=== PATIENT | male | born 1955 | race Caucasian/White ===

== ENCOUNTER 2018-09-12 15:43 | Inpatient (IN) | payer MEDICARE, OTHER, MEDICAID | END 2018-09-16 16:00 | disposition still patient (30) | LOC: ER 15:43 → PCU 3S 09-13 07:30 → ED HOLD 22:47 | DX: I21.4 Non-ST elevation (NSTEMI) myocardial infarction (principal); N17.9 Acute kidney failure, unspecified; J44.1 Chronic obstructive pulmonary disease with (acute) exacerbation; I48.91 Unspecified atrial fibrillation; N18.3 Chronic kidney disease, stage 3 (moderate) ==

== ENCOUNTER 2019-04-08 12:45 | Inpatient (IN) | payer MEDICARE, OTHER ==
[~2019-04-08] VITALS: Ht 162.6 cm; Wt 118.2 kg
[~2019-04-08 12:45] MED LIST: APIX5TAB3 PO; ASPI-611 PO; ATOR20TA66 PO; CARCD120C PO; CARV25TA2 PO; CHOL100046 PO; CLOP75TA15 PO; FURO40TA4 PO; HYDR500C18 PO; LOSA50TA3 PO; PANT40TA4 PO; POTA20TA19 PO; TRAM50TA2 PO
[2019-04-08] MEDS ORDERED: diltiazem 5mg/ml 5ml inj. IV ONE ×2 (13:35→14:30)
[2019-04-08 13:42] LABS: BASOPHILS % (AUTO) 0.1 % (0-1); EOSINOPHILS # (AUTO) 0.1 X10'3 (0-0.9); EOSINOPHILS % (AUTO) 1.8 % (0-6); HEMATOCRIT 42.3 % (42.0-52.0); HEMOGLOBIN 14.3 g/dl (14.0-17.9); LYMPHOCYTES # (AUTO) 1.5 X10'3 (1.1-4.8); LYMPHOCYTES % (AUTO) 18.4 % (21-51); MEAN CORPUSCULAR HEMOGLOBIN 35.6 PG (27.0-31.0); MEAN CORPUSCULAR HGB CONC 33.8 g/dL (33.0-36.5); MEAN CORPUSCULAR VOLUME 105.5 FL (78-98); MEAN PLATELET VOLUME 8.2 FL (7.4-10.4); MONOCYTES # (AUTO) 0.9 X10'3 (0-0.9); MONOCYTES % (AUTO) 10.8 % (2-12); NEUTROPHILS # (AUTO) 5.5 X10'3 (1.8-7.7); NEUTROPHILS % (AUTO) 68.9 % (42-75); PLATELET COUNT 297 X10'3 (140-440); RED BLOOD COUNT 4.01 X10'6 (4.70-6.10); RED CELL DISTRIBUTION WIDTH 16.3 % (11.5-14.5)
[2019-04-08 14:08] LABS: ALANINE AMINOTRANSFERASE 35 U/L (12-78); ALBUMIN 3.7 G/DL (3.4-5.0); ALBUMIN/GLOBULIN RATIO 1.2 (1.1-1.5); ALKALINE PHOSPHATASE 78 IU/L (46-116); ANION GAP 11 (8-16); ASPARTATE AMINO TRANSFERASE 18 U/L (10-37); BLOOD UREA NITROGEN 38 MG/DL (7-18); CALCIUM 9.3 MG/DL (8.5-10.1); CHLORIDE 110 MMOL/L (99-107); GLUCOSE 129 MG/DL (70-104); POTASSIUM 4.5 MMOL/L (3.5-5.1); SODIUM 147 MMOL/L (135-145); TOTAL CARBON DIOXIDE 25.6 MMOL/L (24-32); TOTAL PROTEIN 6.9 G/DL (6.4-8.2); eGFR 36 ML/MIN
[2019-04-08 14:26] LABS: BILIRUBIN,TOTAL 1.1 MG/DL (0.1-1.0)
[2019-04-08 14:36] LABS: D-DIMER 0.32 MG/L FEU (0-0.50); PARTIAL THROMBOPLASTIN TIME 28 SECONDS (22-32)
[2019-04-08] MEDS ORDERED: diltiazem-NS 100mg/100ml 100 ML IV SCH (14:50)
[2019-04-08] MEDS ORDERED: aspirin 81mg tab.chew PO ONE (14:50)
--- NOTE | 2019-04-08 14:52 | NUR ---
breaking primary RN, gave cardizenm over 2 mins, tolerated well, pt sitting up in bed talking to daughter on the phone
[2019-04-08] MEDS ORDERED: LORazepam 2 mg/ml vial IV ONE (15:05)
[2019-04-08] MEDS ORDERED: HYDROcodone/acetaminophen 5mg/325mg tablet PO PRN (15:20)
[2019-04-08] MEDS ORDERED: ondansetron/PF 4mg/2ml inj IV PRN (15:20)
[2019-04-08] MEDS ORDERED: acetaminophen 325mg tablet PO PRN (15:20)
[2019-04-08] MEDS ORDERED: mag hydrox/Alum hydrox/simeth 30ml oral suspension PO PRN (15:20)
[2019-04-08] MEDS ORDERED: magnesium hydroxide 30ml (MOM) UD suspension PO PRN (15:20)
[2019-04-08] MEDS ORDERED: morphine 2 MG/ML inj. syringe IV PRN (15:20)
[2019-04-08] MEDS ORDERED: APIX5TAB3 PO (15:44)
[2019-04-08 15:46] LABS: HEMOGLOBIN A1C 6.2 % (4.5-6.2)
--- NOTE | 2019-04-08 16:15 | NUR ---
Patient in room ED 15. I have received report from GODFREY Orellana and had the opportunity to ask questions and assume patient care.
--- NOTE | 2019-04-08 16:32 | NUR ---
Received patient in 2018A from ER. Attached to bedside monitor. US tech in to do Echo. Patient has increased SOB with exertion, even moving on to the bed. Audible wheezing heard.
[2019-04-08 16:33] VITALS: BP 109/87
[2019-04-08] MEDS ORDERED: traMADol 50MG tablet PO PRN (17:20)
[2019-04-08] MEDS ORDERED: carVEDilol 12.5mg tablet PO STA (17:31)
--- NOTE | 2019-04-08 18:01 | NUR ---
Paged Dr. Chavez to clarify if Amiodarone is to be stopped. Told me verbally, but said he would put in the order and has not yet.
--- NOTE | 2019-04-08 18:19 | NUR ---
Problems reprioritized. Patient report given, questions answered & plan of care reviewed with GODFREY Bird.
--- NOTE | 2019-04-08 18:39 | NUR ---
Problems reprioritized. Patient report given, questions answered & plan of care reviewed with GODFREY Osman.
[2019-04-08 19:00] VITALS: BP 94/65
--- NOTE | 2019-04-08 19:16 | NUR ---
Called Dr. Skaggs, patient's heart rate dropped in low 30's. Got the order to Discontinue the cardizam drip. No other orders were given.
[2019-04-08] MEDS: apixaban 5mg tablet PO SCH (19:46)
[2019-04-08] MEDS: carVEDilol 12.5mg tablet PO SCH (19:46)
[2019-04-08] MEDS ORDERED: non-formulary drug (Carvedilol 1 TABLET) PO SCH (20:00)
[2019-04-08 22:00] VITALS: BP 118/79
--- NOTE | 2019-04-08 23:06 | NUR ---
Called Dr. Skaggs regarding the patient's heart rate being in 110's to 130's. Got the order for cardizam 2.5 ml/hr. No other orders were given at this time.
[2019-04-08] MEDS: diltiazem-NS 100mg/100ml 100 ML IV SCH (23:20)
[2019-04-09] VITALS (14 sets, daily range): BP systolic 108–139; BP diastolic 70–105
[2019-04-09 01:40] LABS: BASOPHILS # (AUTO) 0.1 X10'3 (0-0.2); BASOPHILS % (AUTO) 1.3 % (0-1); EOSINOPHILS # (AUTO) 0.2 X10'3 (0-0.9); EOSINOPHILS % (AUTO) 2.5 % (0-6); HEMATOCRIT 41.6 % (42.0-52.0); HEMOGLOBIN 14.2 g/dl (14.0-17.9); LYMPHOCYTES # (AUTO) 1.7 X10'3 (1.1-4.8); LYMPHOCYTES % (AUTO) 21.9 % (21-51); MEAN CORPUSCULAR HEMOGLOBIN 35.6 PG (27.0-31.0); MEAN CORPUSCULAR VOLUME 104.6 FL (78-98); MEAN PLATELET VOLUME 8.3 FL (7.4-10.4); MONOCYTES % (AUTO) 12.3 % (2-12); NEUTROPHILS # (AUTO) 4.8 X10'3 (1.8-7.7); PLATELET COUNT 296 X10'3 (140-440); RED BLOOD COUNT 3.98 X10'6 (4.70-6.10); RED CELL DISTRIBUTION WIDTH 15.9 % (11.5-14.5); WHITE BLOOD COUNT 7.8 X10'3 (4.5-11.0)
[2019-04-09 01:59] LABS: ALBUMIN 3.4 G/DL (3.4-5.0); ANION GAP 10 (8-16); BLOOD UREA NITROGEN 36 MG/DL (7-18); BUN/CREATININE RATIO 18.8 (5.4-32.0); CALCIUM 8.9 MG/DL (8.5-10.1); CHLORIDE 112 MMOL/L (99-107); CHOL/HDL RATIO 3.2 (0.00-4.99); CHOLESTEROL 113 MG/DL (0-200); CREATININE 1.92 MG/DL (0.60-1.10); GLUCOSE 131 MG/DL (70-104); HDL CHOLESTEROL 35 MG/DL (35-60); LDL CHOLESTEROL 74 MG/DL (50-100); POTASSIUM 3.7 MMOL/L (3.5-5.1); SODIUM 148 MMOL/L (135-145); TOTAL CARBON DIOXIDE 25.8 MMOL/L (24-32); TRIGLYCERIDES 110 MG/DL (20-135); eGFR 35 ML/MIN
[2019-04-09] MEDS: HYDROcodone/acetaminophen 10/325mg tab PO PRN ×3 (02:24→19:14)
--- NOTE | 2019-04-09 06:10 | NUR ---
Patient in room PCU 3018. I have received report from Asael DONAHUE and had the opportunity to ask questions and assume patient care.
--- NOTE | 2019-04-09 06:34 | NUR ---
Gave report to Frederick-GODFREY. All questions were answered
--- NOTE | 2019-04-09 06:52 | NUR ---
Patient in room PCU 3021. I have received report from Jacqui and had the opportunity to ask questions and assume patient care.
[2019-04-09] MEDS: atorvastatin 20mg tablet PO SCH (07:34)
[2019-04-09] MEDS: clopidogrel 75mg tablet PO SCH (07:34)
[2019-04-09] MEDS: apixaban 5mg tablet PO SCH ×2 (07:34→19:13)
[2019-04-09] MEDS: potassium Cl 20 mEq SR tablet PO SCH (07:34)
[2019-04-09] MEDS: losartan 50mg tablet PO SCH (07:35)
[2019-04-09] MEDS: vitamin D (cholecalciferol) 1,000 unit tablet PO SCH (07:35)
[2019-04-09] MEDS: carVEDilol 12.5mg tablet PO SCH ×2 (07:35→19:13)
--- NOTE | 2019-04-09 18:10 | NUR ---
Problems reprioritized. Patient report given, questions answered & plan of care reviewed with Yvette DONAHUE.
--- NOTE | 2019-04-09 18:37 | NUR ---
I have reviewed Ayse DONAHUE, orientee, charting and I agree with it
[2019-04-09] MEDS: diltiazem 30mg tablet PO SCH (19:13)
[2019-04-10] VITALS (10 sets, daily range): BP systolic 94–125; BP diastolic 80–99
[2019-04-10] MEDS: HYDROcodone/acetaminophen 10/325mg tab PO PRN ×3 (01:39→21:30)
[2019-04-10] MEDS: diltiazem 30mg tablet PO SCH ×4 (01:39→21:25)
--- NOTE | 2019-04-10 02:43 | NUR ---
Called Dr. Skaggs due to patient's HR dropping into the 30s-40s while on Cardizem drip and having received 60mg PO dose of Cardizem. Current BP 118/87 and patient appears to be sleeping with no s/s of distress. HR when woken up rises to the 110s-120s. MD gave order to place drip on hold for HR less than 60 and to have AM nurse call day MD prior to giving next PO dose
[2019-04-10 05:46] LABS: BASOPHILS # (AUTO) 0.1 X10'3 (0-0.2); BASOPHILS % (AUTO) 1.3 % (0-1); EOSINOPHILS # (AUTO) 0.2 X10'3 (0-0.9); EOSINOPHILS % (AUTO) 2.9 % (0-6); HEMOGLOBIN 14.6 g/dl (14.0-17.9); LYMPHOCYTES # (AUTO) 1.5 X10'3 (1.1-4.8); LYMPHOCYTES % (AUTO) 20.2 % (21-51); MEAN CORPUSCULAR HEMOGLOBIN 35.7 PG (27.0-31.0); MEAN CORPUSCULAR HGB CONC 33.3 g/dL (33.0-36.5); MEAN PLATELET VOLUME 8.1 FL (7.4-10.4); MONOCYTES # (AUTO) 0.9 X10'3 (0-0.9); MONOCYTES % (AUTO) 12.9 % (2-12); NEUTROPHILS # (AUTO) 4.6 X10'3 (1.8-7.7); NEUTROPHILS % (AUTO) 62.7 % (42-75); PLATELET COUNT 289 X10'3 (140-440); RED BLOOD COUNT 4.11 X10'6 (4.70-6.10); RED CELL DISTRIBUTION WIDTH 16.1 % (11.5-14.5); WHITE BLOOD COUNT 7.4 X10'3 (4.5-11.0)
[2019-04-10 06:00] LABS: ALBUMIN 3.5 G/DL (3.4-5.0); ANION GAP 9 (8-16); BLOOD UREA NITROGEN 36 MG/DL (7-18); BUN/CREATININE RATIO 21.1 (5.4-32.0); CALCIUM 9.5 MG/DL (8.5-10.1); CHLORIDE 107 MMOL/L (99-107); CREATININE 1.71 MG/DL (0.60-1.10); GLUCOSE 123 MG/DL (70-104); POTASSIUM 3.7 MMOL/L (3.5-5.1); SODIUM 142 MMOL/L (135-145); TOTAL CARBON DIOXIDE 26.2 MMOL/L (24-32); eGFR 40 ML/MIN
--- NOTE | 2019-04-10 06:11 | NUR ---
Problems reprioritized. Patient report given, questions answered & plan of care reviewed with Mireya DONAHUE.
--- NOTE | 2019-04-10 07:43 | NUR ---
Per Dr Skaggs's order, notified AM MD of pt's current HR for possible adjustment of AM dose Cardizem. PAGER ID: [phone] MESSAGE: [phone] Liz Wilkinson HR 90-110s, off Cardizem drip since 239 due to low HR. Notifying you per order, do you want to adjust AM dose 60mg PO Cardizem? Chrissy Gomes [id number] Addendum: 04/10/19 at 0747 by Marilou Dodd RN Received return call and order to change cardizem order to 90mg PO Q6H Addendum: 04/10/19 at 1030 by Mireya Vergara RN [id number] - PO Cardizem dose changed from 60 to 90mg and order to keep pt of Cardizem gtt at this time.
[2019-04-10] MEDS: clopidogrel 75mg tablet PO SCH (08:41)
[2019-04-10] MEDS: carVEDilol 12.5mg tablet PO SCH (08:41)
[2019-04-10] MEDS: atorvastatin 20mg tablet PO SCH (08:41)
[2019-04-10] MEDS: potassium Cl 20 mEq SR tablet PO SCH (08:41)
[2019-04-10] MEDS: losartan 50mg tablet PO SCH (08:41)
[2019-04-10] MEDS: vitamin D (cholecalciferol) 1,000 unit tablet PO SCH (08:41)
[2019-04-10] MEDS: apixaban 5mg tablet PO SCH ×2 (08:42→21:25)
[2019-04-10] MEDS: diltiazem-NS 100mg/100ml 100 ML IV SCH (15:15)
[2019-04-10] MEDS: carvedilol 6.25mg tablet PO SCH (21:25)
[2019-04-10] MEDS: sacubitril/valsartan 24mg-26mg tablet PO SCH (21:25)
[2019-04-11] VITALS (7 sets, daily range): BP systolic 114–138; BP diastolic 56–97
[2019-04-11] MEDS: diltiazem 30mg tablet PO SCH ×3 (01:18→14:32)
[2019-04-11] MEDS: HYDROcodone/acetaminophen 10/325mg tab PO PRN ×5 (01:18→19:33)
--- NOTE | 2019-04-11 04:15 | NUR ---
Called Dr. Skaggs due to patient's HR dropping into the 20s and continuing to drop into the 30s for approximately 1 minute at a time. When patient was examined he was sleeping with no s/s of distress noted. Patient's HR continues to rise back into the 110s without any intervention. MD stated to continue to monitor.
[2019-04-11 05:45] LABS: BASOPHILS # (AUTO) 0.1 X10'3 (0-0.2); BASOPHILS % (AUTO) 1.8 % (0-1); EOSINOPHILS # (AUTO) 0.2 X10'3 (0-0.9); EOSINOPHILS % (AUTO) 3.5 % (0-6); HEMATOCRIT 42.9 % (42.0-52.0); HEMOGLOBIN 14.5 g/dl (14.0-17.9); LYMPHOCYTES # (AUTO) 1.7 X10'3 (1.1-4.8); LYMPHOCYTES % (AUTO) 24.4 % (21-51); MEAN CORPUSCULAR HEMOGLOBIN 35.6 PG (27.0-31.0); MEAN CORPUSCULAR HGB CONC 33.9 g/dL (33.0-36.5); MEAN CORPUSCULAR VOLUME 104.8 FL (78-98); MEAN PLATELET VOLUME 8.3 FL (7.4-10.4); MONOCYTES # (AUTO) 0.8 X10'3 (0-0.9); MONOCYTES % (AUTO) 11.9 % (2-12); NEUTROPHILS # (AUTO) 4.1 X10'3 (1.8-7.7); NEUTROPHILS % (AUTO) 58.4 % (42-75); PLATELET COUNT 307 X10'3 (140-440); RED BLOOD COUNT 4.09 X10'6 (4.70-6.10)
[2019-04-11 05:47] LABS: ALBUMIN 3.4 G/DL (3.4-5.0); ANION GAP 10 (8-16); BLOOD UREA NITROGEN 32 MG/DL (7-18); BUN/CREATININE RATIO 19.4 (5.4-32.0); CALCIUM 8.2 MG/DL (8.5-10.1); CHLORIDE 108 MMOL/L (99-107); CREATININE 1.65 MG/DL (0.60-1.10); GLUCOSE 106 MG/DL (70-104); POTASSIUM 3.6 MMOL/L (3.5-5.1); SODIUM 144 MMOL/L (135-145); TOTAL CARBON DIOXIDE 26.5 MMOL/L (24-32); eGFR 42 ML/MIN
--- NOTE | 2019-04-11 06:00 | NUR ---
Patient in room PCU 3018. I have received report from Yvette DONAHUE and had the opportunity to ask questions and assume patient care.
--- NOTE | 2019-04-11 06:17 | NUR ---
Problems reprioritized. Patient report given, questions answered & plan of care reviewed with Frederick DONAHUE.
[2019-04-11] MEDS: sacubitril/valsartan 24mg-26mg tablet PO SCH ×2 (07:29→19:56)
[2019-04-11] MEDS: carvedilol 6.25mg tablet PO SCH ×2 (07:29→19:33)
[2019-04-11] MEDS: apixaban 5mg tablet PO SCH ×2 (07:29→19:33)
[2019-04-11] MEDS: vitamin D (cholecalciferol) 1,000 unit tablet PO SCH (07:29)
[2019-04-11] MEDS: potassium Cl 20 mEq SR tablet PO SCH (07:29)
[2019-04-11] MEDS: clopidogrel 75mg tablet PO SCH (07:30)
[2019-04-11] MEDS: atorvastatin 20mg tablet PO SCH (07:30)
[2019-04-11] MEDS: losartan 50mg tablet PO SCH (07:30)
--- NOTE | 2019-04-11 08:15 | NUR ---
Pt had a 5.75 second cardiac pause at 0810. Dr. Ferrara notified, no new orders.
[2019-04-11 11:21] LABS: URINE AMPHETAMINE SCREEN NEGATIVE (Neg); URINE BARBITUATE SCREEN NEGATIVE (Neg); URINE BENZODIAZEPINES SCREEN NEGATIVE (Neg); URINE CANNABINOID SCREEN NEGATIVE (Neg); URINE COCAINE SCREEN NEGATIVE (Neg); URINE METHADONE SCREEN NEGATIVE (Neg); URINE OPIATE SCREEN POSITIVE (Neg); URINE PHENCYCLIDINE SCREEN NEGATIVE (Neg)
--- NOTE | 2019-04-11 18:00 | NUR ---
Patient in room [facility] 3018. I have received report from Yvette DONAHUE and Elisabet DONAHUE and had the opportunity to ask questions and assume patient care. Addendum: 04/11/19 at 1836 by Frederick Quezada RN Problems reprioritized. Patient report given, questions answered & plan of care reviewed with Yvette DONAHUE and Elisabet DONAHUE.
--- NOTE | 2019-04-11 18:46 | NUR ---
Patient in room PCU 3018. I have received report from GODFREY Mack and had the opportunity to ask questions and assume patient care.
[2019-04-11] MEDS: amiodarone 200mg tablet PO SCH (19:33)
[2019-04-12] MEDS: HYDROcodone/acetaminophen 10/325mg tab PO PRN ×6 (00:28→23:42)
[2019-04-12 02:00] VITALS: BP 103/86
[2019-04-12 05:38] LABS: BASOPHILS # (AUTO) 0.1 X10'3 (0-0.2); BASOPHILS % (AUTO) 1.2 % (0-1); EOSINOPHILS # (AUTO) 0.2 X10'3 (0-0.9); EOSINOPHILS % (AUTO) 3.3 % (0-6); HEMOGLOBIN 14.9 g/dl (14.0-17.9); LYMPHOCYTES # (AUTO) 1.6 X10'3 (1.1-4.8); LYMPHOCYTES % (AUTO) 23.3 % (21-51); MEAN CORPUSCULAR HEMOGLOBIN 35.7 PG (27.0-31.0); MEAN CORPUSCULAR HGB CONC 33.8 g/dL (33.0-36.5); MEAN CORPUSCULAR VOLUME 105.6 FL (78-98); MEAN PLATELET VOLUME 7.9 FL (7.4-10.4); MONOCYTES % (AUTO) 13.8 % (2-12); NEUTROPHILS % (AUTO) 58.4 % (42-75); PLATELET COUNT 309 X10'3 (140-440); RED BLOOD COUNT 4.17 X10'6 (4.70-6.10); RED CELL DISTRIBUTION WIDTH 16.4 % (11.5-14.5); WHITE BLOOD COUNT 6.9 X10'3 (4.5-11.0)
--- NOTE | 2019-04-12 05:50 | NUR ---
Orientee documentation: I have reviewed all interventions, assessments performed and documented by Elisabet DONAHUE. Orientee Medication Administration: For this medication-pass time frame, all medication were reviewed, dispensed, administered and documented per hospital policy by Elisabet DONAHUE.
[2019-04-12 06:00] VITALS: BP 134/90
[2019-04-12 06:00] LABS: ALBUMIN 3.2 G/DL (3.4-5.0); ANION GAP 6 (8-16); BLOOD UREA NITROGEN 25 MG/DL (7-18); CALCIUM 8.2 MG/DL (8.5-10.1); CHLORIDE 108 MMOL/L (99-107); CREATININE 1.39 MG/DL (0.60-1.10); GLUCOSE 119 MG/DL (70-104); POTASSIUM 3.6 MMOL/L (3.5-5.1); SODIUM 144 MMOL/L (135-145); TOTAL CARBON DIOXIDE 29.6 MMOL/L (24-32); eGFR 51 ML/MIN
--- NOTE | 2019-04-12 06:00 | NUR ---
Patient in room PCU 3018. I have received report from Yvette DONAHUE and had the opportunity to ask questions and assume patient care.
--- NOTE | 2019-04-12 06:07 | NUR ---
Problems reprioritized. Patient report given, questions answered & plan of care reviewed with Frederick DONAHUE.
--- NOTE | 2019-04-12 06:23 | NUR ---
Problems reprioritized. Patient report given, questions answered & plan of care reviewed with GODFREY Mack.
[2019-04-12] MEDS: carvedilol 6.25mg tablet PO SCH (07:22)
[2019-04-12] MEDS: sacubitril/valsartan 24mg-26mg tablet PO SCH ×2 (07:22→19:11)
[2019-04-12] MEDS: clopidogrel 75mg tablet PO SCH (07:22)
[2019-04-12] MEDS: vitamin D (cholecalciferol) 1,000 unit tablet PO SCH (07:22)
[2019-04-12] MEDS: atorvastatin 20mg tablet PO SCH (07:22)
[2019-04-12] MEDS: potassium Cl 20 mEq SR tablet PO SCH (07:22)
[2019-04-12] MEDS: amiodarone 200mg tablet PO SCH ×2 (07:23→19:22)
[2019-04-12] MEDS: apixaban 5mg tablet PO SCH ×2 (07:23→19:12)
[2019-04-12] MEDS ORDERED: carvedilol 6.25mg tablet PO ONE (09:30)
[2019-04-12 11:00] VITALS: BP 97/71
[2019-04-12] MEDS ORDERED: amiodarone 200mg tablet PO ONE (11:10)
[2019-04-12] MEDS ORDERED: ipratropium/albuterol 3ml nebule NEB PRN (15:05)
[2019-04-12 18:00] VITALS: BP 120/90
--- NOTE | 2019-04-12 18:00 | NUR ---
Problems reprioritized. Patient report given, questions answered & plan of care reviewed with Carlota DONAHUE and Elisabet DONAHUE.
[2019-04-12 19:00] VITALS: BP 101/83
[2019-04-12] MEDS: carVEDilol 12.5mg tablet PO SCH (19:11)
[2019-04-12] MEDS: ipratropium/albuterol 3ml nebule NEB SCH ×2 (19:43→23:18)
[2019-04-12] MEDS: budesonide 0.5mg/2ml UD nebule IH SCH (19:43)
[2019-04-12] MEDS ORDERED: furosemide 40mg/4ml inj IV SCH (20:00)
[2019-04-12 22:00] VITALS: BP 136/86
[2019-04-12] MEDS: spironolactone 25 MG tablet PO SCH (22:01)
[2019-04-13 02:00] VITALS: BP 121/93
--- NOTE | 2019-04-13 02:01 | NUR ---
Patient in room PCU 3018. I have received report from GODFREY Mack and had the opportunity to ask questions and assume patient care. Patient denies feeling chest pain, shortness of pain, and nausea.
[2019-04-13] MEDS: ipratropium/albuterol 3ml nebule NEB SCH ×4 (03:04→13:46)
[2019-04-13] MEDS: HYDROcodone/acetaminophen 10/325mg tab PO PRN ×3 (03:57→14:59)
[2019-04-13 06:00] VITALS: BP 106/87
--- NOTE | 2019-04-13 06:40 | NUR ---
Problems reprioritized. Patient report given, questions answered & plan of care reviewed with Sanjay DONAHUE.
[2019-04-13] MEDS: budesonide 0.5mg/2ml UD nebule IH SCH (06:53)
[2019-04-13 07:16] LABS: BASOPHILS # (AUTO) 0.1 X10'3 (0-0.2); BASOPHILS % (AUTO) 1.7 % (0-1); EOSINOPHILS # (AUTO) 0.2 X10'3 (0-0.9); EOSINOPHILS % (AUTO) 2.8 % (0-6); HEMATOCRIT 46.4 % (42.0-52.0); HEMOGLOBIN 15.8 g/dl (14.0-17.9); LYMPHOCYTES # (AUTO) 1.8 X10'3 (1.1-4.8); LYMPHOCYTES % (AUTO) 24.2 % (21-51); MEAN CORPUSCULAR HEMOGLOBIN 35.9 PG (27.0-31.0); MEAN CORPUSCULAR VOLUME 105.5 FL (78-98); MONOCYTES % (AUTO) 13.1 % (2-12); NEUTROPHILS # (AUTO) 4.4 X10'3 (1.8-7.7); NEUTROPHILS % (AUTO) 58.2 % (42-75); PLATELET COUNT 341 X10'3 (140-440); RED CELL DISTRIBUTION WIDTH 16.2 % (11.5-14.5); WHITE BLOOD COUNT 7.6 X10'3 (4.5-11.0)
[2019-04-13] MEDS: sacubitril/valsartan 24mg-26mg tablet PO SCH (07:34)
[2019-04-13] MEDS: clopidogrel 75mg tablet PO SCH (07:35)
[2019-04-13] MEDS: atorvastatin 20mg tablet PO SCH (07:35)
[2019-04-13] MEDS: potassium Cl 20 mEq SR tablet PO SCH (07:35)
[2019-04-13] MEDS: apixaban 5mg tablet PO SCH (07:35)
[2019-04-13] MEDS: vitamin D (cholecalciferol) 1,000 unit tablet PO SCH (07:35)
[2019-04-13] MEDS: carVEDilol 12.5mg tablet PO SCH (07:35)
[2019-04-13] MEDS: amiodarone 200mg tablet PO SCH (07:35)
[2019-04-13] MEDS: spironolactone 25 MG tablet PO SCH (07:35)
[2019-04-13] MEDS ORDERED: furosemide 40mg tablet PO SCH (08:00)
[2019-04-13 08:52] LABS: ALBUMIN 3.4 G/DL (3.4-5.0); ANION GAP 11 (8-16); BLOOD UREA NITROGEN 23 MG/DL (7-18); BUN/CREATININE RATIO 16.1 (5.4-32.0); CHLORIDE 107 MMOL/L (99-107); CREATININE 1.43 MG/DL (0.60-1.10); GLUCOSE 109 MG/DL (70-104); POTASSIUM 3.8 MMOL/L (3.5-5.1); SODIUM 145 MMOL/L (135-145); TOTAL CARBON DIOXIDE 26.6 MMOL/L (24-32); eGFR 50 ML/MIN
[2019-04-13] MEDS ORDERED: ATOR80TA PO (10:00)
[2019-04-13] MEDS ORDERED: SACU1TAB PO (10:00)
[2019-04-13] MEDS ORDERED: SPIR25TA PO (10:00)
[2019-04-13] MEDS ORDERED: CARV-50 PO (10:00)
[2019-04-13] MEDS ORDERED: AMIO200T61 PO ×2 (10:00→10:44)
[2019-04-13 11:00] VITALS: BP 95/71
--- NOTE | 2019-04-13 11:13 | NUR ---
[facility], patient told to call when [facility] are [facility]
--- NOTE | 2019-04-13 11:43 | NUR ---
AGER ID: [phone] MESSAGE: [id number] Villa Wilkinson I was needing some clarification on the Amiodarone for discharge. GODFREY Grace Ext [phone]
--- NOTE | 2019-04-13 11:53 | NUR ---
Meds called into [facility] [address] [place].
[2019-04-13 15:00] VITALS: BP 115/84
--- NOTE | 2019-04-13 17:34 | NUR ---
Discharged tele and IV off. Educated on meds, aifb, chf, told make appointment in a week (I was unable to [facility]oin[facility] with [facility], no phone option directed me to it). Educated the family on everything I educated patient on. Educated on family on [employer] vest. Stable for MD per DC.
== END 2019-04-13 16:30 | disposition home or self-care (01) | DRG 291 ==
LOC: ER 12:46 → ED HOLD 15:24 → PCU 3S 16:53
PROVIDERS: ADMIT Internal Medicine; ATTEND Family Medicine
DX: I13.0 Hypertensive heart and chronic kidney disease with heart failure and stage 1 through stage 4 chronic kidney disease, or unspecified chronic kidney disease (principal); I50.43 Acute on chronic combined systolic (congestive) and diastolic (congestive) heart failure; J96.02 Acute respiratory failure with hypercapnia; Z68.41 Body mass index [BMI] 40.0-44.9, adult; N17.9 Acute kidney failure, unspecified; E87.0 Hyperosmolality and hypernatremia; I42.9 Cardiomyopathy, unspecified; I48.0 Paroxysmal atrial fibrillation; E66.01 Morbid (severe) obesity due to excess calories; J44.9 Chronic obstructive pulmonary disease, unspecified; D69.6 Thrombocytopenia, unspecified; R00.0 Tachycardia, unspecified; N18.3 Chronic kidney disease, stage 3 (moderate); I25.10 Atherosclerotic heart disease of native coronary artery without angina pectoris; E78.00 Pure hypercholesterolemia, unspecified; E78.5 Hyperlipidemia, unspecified; G47.33 Obstructive sleep apnea (adult) (pediatric); I50.82 Biventricular heart failure; I25.2 Old myocardial infarction; Z79.899 Other long term (current) drug therapy; Z87.891 Personal history of nicotine dependence; Z95.5 Presence of coronary angioplasty implant and graft
CPT/HCPCS: 36415; 71045; 80048; 80053; 80061; 80305; 83036; 83880; 84439; 84443; 84484; 85025; 85379; 85610; 85730; 87081; 93005; 93306; 94640; 94760; 96365; 96375; 96376; 99291; G0378; J1940; J2060; J3490; J7626

== ENCOUNTER 2019-09-03 11:31 | Emergency (ER) | payer MEDICAID, MEDICARE, OTHER ==
[~2019-09-03] VITALS: Ht 162.6 cm; Wt 115.9 kg
[~2019-09-03 11:31] MED LIST changes: -ASPI-611 PO; -ATOR20TA66 PO; -CARCD120C PO; +CARV-50 PO; -CARV25TA2 PO; -LOSA50TA3 PO; -PANT40TA4 PO; +SACU1TAB PO; +SPIR25TA PO
[2019-09-03] MEDS ORDERED: normal saline 1000ML IV soln IVB ONE ×2 (12:15→13:20)
--- NOTE | 2019-09-03 12:16 | NUR ---
RECEIVED REPORT FROM ZURI DONAHUE, PT IS RESTING QUIETLY ON GURSALIX IN [facility],
[2019-09-03 12:49] LABS: BASOPHILS # (AUTO) 0.2 X10'3 (0-0.2); EOSINOPHILS # (AUTO) 0.2 X10'3 (0-0.9); HEMATOCRIT 51.7 % (42.0-52.0); HEMOGLOBIN 17.9 g/dl (14.0-17.9); LYMPHOCYTES # (AUTO) 1.8 X10'3 (1.1-4.8); LYMPHOCYTES % (AUTO) 22.3 % (21-51); MEAN CORPUSCULAR HGB CONC 34.7 g/dL (33.0-36.5); MEAN CORPUSCULAR VOLUME 103.7 FL (78-98); MEAN PLATELET VOLUME 7.4 FL (7.4-10.4); MONOCYTES % (AUTO) 12.1 % (2-12); NEUTROPHILS # (AUTO) 4.9 X10'3 (1.8-7.7); NEUTROPHILS % (AUTO) 60.6 % (42-75); PLATELET COUNT 321 X10'3 (140-440); RED BLOOD COUNT 4.99 X10'6 (4.70-6.10); RED CELL DISTRIBUTION WIDTH 15.6 % (11.5-14.5); WHITE BLOOD COUNT 8.1 X10'3 (4.5-11.0)
--- NOTE | 2019-09-03 12:49 | NUR ---
PT RECEIVING 500ML BOLUS OF NS, IV TO LEFT AC IS PATENT AND CLEAR
[2019-09-03 13:14] LABS: ALANINE AMINOTRANSFERASE 29 U/L (12-78); ALBUMIN 4.2 G/DL (3.4-5.0); ALBUMIN/GLOBULIN RATIO 1.1 (1.1-1.5); ALKALINE PHOSPHATASE 78 IU/L (46-116); ANION GAP 12 (8-16); ASPARTATE AMINO TRANSFERASE 21 U/L (10-37); BILIRUBIN,TOTAL 1.2 MG/DL (0.1-1.0); BLOOD UREA NITROGEN 42 MG/DL (7-18); BUN/CREATININE RATIO 19.7 (5.4-32.0); CALCIUM 9.9 MG/DL (8.5-10.1); CHLORIDE 104 MMOL/L (99-107); CREATININE 2.13 MG/DL (0.60-1.10); GLUCOSE 134 MG/DL (70-104); POTASSIUM 5.3 MMOL/L (3.5-5.1); SODIUM 138 MMOL/L (135-145); TOTAL CARBON DIOXIDE 21.9 MMOL/L (24-32); TOTAL PROTEIN 7.9 G/DL (6.4-8.2); eGFR 31 ML/MIN
[2019-09-03 13:41] LABS: CLARITY,URINE CLEAR (Clear); COLOR,URINE STRAW (Yellow); GLUCOSE, URINE NEGATIVE (Neg); KETONES,URINE NEGATIVE (Neg); LEUKOCYTE ESTERASE ,URINE NEGATIVE (Neg); NITRITES, URINE NEGATIVE (Neg); OCCULT BLOOD,URINE NEGATIVE (Neg); PH,URINE 5.5 (4.8-8.0); PROTEIN,URINE TRACE mg/dl (Neg); UROBILINOGEN,URINE 0.2 E.U/dL (0.2-1.0)
[2019-09-03 13:42] LABS: UA COLLECTION TYPE CLN CATCH MIDSTREAM
--- NOTE | 2019-09-03 13:45 | NUR ---
pt is receiving 2nd 500ml NS bolus
[2019-09-03 13:46] LABS: HYALINE CASTS 0-3 /LPF (NEGATIVE); SQUAMOUS EPITHELIAL CELL,UR FEW /LPF (FEW)
[2019-09-03 13:47] LABS: BACTERIA,URINE FEW /HPF (Neg); RBC,URINE 0-2 /HPF (0-2); TRANSITIONAL EPI CELLS,URINE FEW /HPF; WBC,URINE 0-4 /HPF (0-4)
[2019-09-03 14:22] VITALS: BP 137/98
== END 2019-09-03 14:24 | disposition home or self-care (01) ==
LOC: ER 11:31
DX: E86.0 Dehydration (principal); I95.9 Hypotension, unspecified; I48.91 Unspecified atrial fibrillation; E78.00 Pure hypercholesterolemia, unspecified; I10 Essential (primary) hypertension; I25.10 Atherosclerotic heart disease of native coronary artery without angina pectoris; Z85.9 Personal history of malignant neoplasm, unspecified; Z79.01 Long term (current) use of anticoagulants; Z79.899 Other long term (current) drug therapy
CPT/HCPCS: 36415; 71046; 80053; 81001; 83605; 84145; 84484; 85025; 87040; 93005; 96360; 99285; J7030

== ENCOUNTER 2020-01-21 11:32 | Inpatient (IN) | payer OTHER, MEDICARE ==
[~2020-01-21] VITALS: Ht 162.6 cm; Wt 114.0 kg
[2020-01-21 12:29] LABS: BASOPHILS # (AUTO) 0.1 X10'3 (0-0.2); BASOPHILS % (AUTO) 1.4 % (0-1); EOSINOPHILS # (AUTO) 0.1 X10'3 (0-0.9); EOSINOPHILS % (AUTO) 1.5 % (0-6); HEMATOCRIT 53.7 % (42.0-52.0); HEMOGLOBIN 17.5 g/dl (14.0-17.9); LYMPHOCYTES # (AUTO) 1.6 X10'3 (1.1-4.8); LYMPHOCYTES % (AUTO) 19.5 % (21-51); MEAN CORPUSCULAR HEMOGLOBIN 34.9 PG (27.0-31.0); MEAN CORPUSCULAR HGB CONC 32.6 g/dL (33.0-36.5); MEAN CORPUSCULAR VOLUME 107.2 FL (78-98); MEAN PLATELET VOLUME 8.3 FL (7.4-10.4); MONOCYTES # (AUTO) 0.9 X10'3 (0-0.9); MONOCYTES % (AUTO) 10.7 % (2-12); NEUTROPHILS # (AUTO) 5.6 X10'3 (1.8-7.7); NEUTROPHILS % (AUTO) 66.9 % (42-75); PLATELET COUNT 236 X10'3 (140-440); RED BLOOD COUNT 5.01 X10'6 (4.70-6.10); WHITE BLOOD COUNT 8.4 X10'3 (4.5-11.0)
[2020-01-21 12:42] LABS: ALANINE AMINOTRANSFERASE 32 U/L (12-78); ALBUMIN 3.5 G/DL (3.4-5.0); ALKALINE PHOSPHATASE 80 IU/L (46-116); ANION GAP 11 (8-16); ASPARTATE AMINO TRANSFERASE 13 U/L (10-37); BLOOD UREA NITROGEN 48 MG/DL (7-18); CALCIUM 9.9 MG/DL (8.5-10.1); CHLORIDE 107 MMOL/L (99-107); CREATININE 2.52 MG/DL (0.60-1.10); GLUCOSE 160 MG/DL (70-104); POTASSIUM 5.3 MMOL/L (3.5-5.1); SODIUM 140 MMOL/L (135-145); TOTAL CARBON DIOXIDE 22.2 MMOL/L (24-32); TOTAL PROTEIN 6.9 G/DL (6.4-8.2); eGFR 26 ML/MIN
[2020-01-21 13:22] LABS: D-DIMER 0.52 MG/L FEU (0-0.50); PARTIAL THROMBOPLASTIN TIME 29 SECONDS (22-32)
[2020-01-21] MEDS ORDERED: furosemide 10 MG/1 ML 10ml inj IV ONE (13:45)
[2020-01-21] MEDS ORDERED: ondansetron/PF 4mg/2ml inj IV PRN (14:00)
[2020-01-21] MEDS ORDERED: acetaminophen 325mg tablet PO PRN ×2 (14:00)
[2020-01-21] MEDS ORDERED: mag hydrox/Alum hydrox/simeth 30ml oral suspension PO PRN (14:00)
[2020-01-21] MEDS ORDERED: magnesium hydroxide 30ml (MOM) UD suspension PO PRN (14:00)
[2020-01-21] MEDS ORDERED: morphine 2 MG/ML inj. syringe IV PRN ×2 (14:00)
[2020-01-21] MEDS ORDERED: HYDROcodone/acetaminophen 5mg/325mg tablet PO PRN (14:00)
[2020-01-21] MEDS ORDERED: SACU1TAB7 PO (14:12)
[2020-01-21] MEDS ORDERED: AMLO10TA PO (14:12)
[2020-01-21] MEDS ORDERED: SPIR25TA5 PO (14:12)
[2020-01-21] MEDS ORDERED: CARV25TA PO (14:12)
[2020-01-21] MEDS ORDERED: ATOR20TA66 PO (14:12)
[2020-01-21] MEDS: HYDROcodone/acetaminophen 10/325mg tab PO PRN ×2 (15:21→19:37)
[2020-01-21] MEDS ORDERED: traMADol 50MG tablet PO PRN (17:00)
[2020-01-21 18:18] LABS: CLARITY,URINE CLEAR (Clear); COLOR,URINE YELLOW (Yellow); GLUCOSE, URINE NEGATIVE (Neg); KETONES,URINE NEGATIVE (Neg); LEUKOCYTE ESTERASE ,URINE TRACE (Neg); NITRITES, URINE NEGATIVE (Neg); OCCULT BLOOD,URINE TRACE-LYSED (Neg); PROTEIN,URINE 100 mg/dl (Neg); UROBILINOGEN,URINE 0.2 E.U/dL (0.2-1.0)
--- NOTE | 2020-01-21 18:21 | NUR ---
Patient in room ED 5. I have received report from Mary DONAHUE and had the opportunity to ask questions and assume patient care.
[2020-01-21 18:24] LABS: UA COLLECTION TYPE CLN CATCH MIDSTREAM
[2020-01-21 18:30] VITALS: BP 147/109
[2020-01-21 18:36] LABS: BACTERIA,URINE NONE SEEN /HPF (Neg); MUCUS STRANDS FEW /LPF (Neg); RBC,URINE NONE SEEN /HPF (0-2); SQUAMOUS EPITHELIAL CELL,UR NONE SEEN /LPF (FEW); WBC,URINE 0-4 /HPF (0-4)
[2020-01-21] MEDS: furosemide 40mg/4ml inj IV SCH (19:36)
[2020-01-21] MEDS: carVEDilol 12.5mg tablet PO SCH (19:36)
[2020-01-21] MEDS: apixaban 5mg tablet PO SCH (19:37)
[2020-01-21] MEDS: sacubitril/valsartan 24mg-26mg tablet PO SCH (19:37)
--- NOTE | 2020-01-21 20:59 | NUR ---
PAGER ID: [phone] MESSAGE: Villa Wilkinson [id number]: Patients heart rate has been in the 130s since admission. He is currently in A-Flutter. -Ashley DONAHUE [phone]
[2020-01-21] MEDS ORDERED: metoprolol tartrate 1mg/ml inj IV ONE (21:15)
[2020-01-21 22:00] VITALS: BP 138/92
--- NOTE | 2020-01-21 22:59 | NUR ---
PAGER ID: [phone] MESSAGE: Villa Wilkinson [id number]: Gave Lopressor IV to the patient at about 2130. HR is still 130s Juanita-mustapha Dodson RN [phone]
[2020-01-21] MEDS ORDERED: diltiazem 5mg/ml 5ml inj. IV ONE ×2 (23:05)
[2020-01-22] VITALS (12 sets, daily range): BP systolic 100–140; BP diastolic 79–122
[2020-01-22] MEDS ORDERED: digoxin 250mcg/ml 2ml ampule IV ONE ×3 (00:20→12:00)
[2020-01-22] MEDS ORDERED: diltiazem-D5W 125mg/125ml 125 ML IV SCH (01:10)
[2020-01-22] MEDS ORDERED: diltiazem-NS 100mg/100ml 100 ML IV SCH (01:15)
[2020-01-22] MEDS: HYDROcodone/acetaminophen 10/325mg tab PO PRN ×3 (02:27→23:07)
[2020-01-22 05:08] LABS: BASOPHILS # (AUTO) 0.1 X10'3 (0-0.2); BASOPHILS % (AUTO) 1.2 % (0-1); EOSINOPHILS # (AUTO) 0.2 X10'3 (0-0.9); EOSINOPHILS % (AUTO) 2.3 % (0-6); HEMOGLOBIN 17.2 g/dl (14.0-17.9); LYMPHOCYTES # (AUTO) 1.4 X10'3 (1.1-4.8); LYMPHOCYTES % (AUTO) 21.2 % (21-51); MEAN CORPUSCULAR HEMOGLOBIN 35.3 PG (27.0-31.0); MEAN CORPUSCULAR VOLUME 107.1 FL (78-98); MEAN PLATELET VOLUME 8.6 FL (7.4-10.4); MONOCYTES # (AUTO) 0.8 X10'3 (0-0.9); NEUTROPHILS # (AUTO) 4.2 X10'3 (1.8-7.7); NEUTROPHILS % (AUTO) 63.3 % (42-75); PLATELET COUNT 214 X10'3 (140-440); RED BLOOD COUNT 4.85 X10'6 (4.70-6.10); WHITE BLOOD COUNT 6.6 X10'3 (4.5-11.0)
--- NOTE | 2020-01-22 06:17 | NUR ---
Problems reprioritized. Patient report given, questions answered & plan of care reviewed with Stephy DONAHUE.
--- NOTE | 2020-01-22 06:25 | NUR ---
Patient in room PCU 3012. I have received report from GODFREY Ramirez and had the opportunity to ask questions and assume patient care. Patient asleep in bed and in no acute distress.
[2020-01-22 06:44] LABS: ALBUMIN 3.1 G/DL (3.4-5.0); ANION GAP 8 (8-16); BLOOD UREA NITROGEN 56 MG/DL (7-18); BUN/CREATININE RATIO 20.9 (5.4-32.0); CALCIUM 9.8 MG/DL (8.5-10.1); CHLORIDE 106 MMOL/L (99-107); CREATININE 2.68 MG/DL (0.60-1.10); GLUCOSE 101 MG/DL (70-104); POTASSIUM 5.1 MMOL/L (3.5-5.1); SODIUM 143 MMOL/L (135-145); TOTAL CARBON DIOXIDE 29.4 MMOL/L (24-32); eGFR 24 ML/MIN
--- NOTE | 2020-01-22 06:45 | NUR ---
Paged Dr. Hill regarding clarification for digoxin. PAGER ID: [phone] MESSAGE: [id number]. Villa Wilkinson. Dose of one time digoxin for 0600, but digoxin given last night. Would you like for me to administer? Thank you. Stephy DONAHUE x [phone]
--- NOTE | 2020-01-22 07:14 | NUR ---
Paged Dr. Chavez regarding clarification for digoxin. PAGER ID: [phone] MESSAGE: [id number]. Villa Wilkinson. Dose of one time digoxin for 0600, but digoxin given last night. Would you like for me to administer this AM? Thank you. Stephy DONAHUE x [phone]
[2020-01-22] MEDS: sacubitril/valsartan 24mg-26mg tablet PO SCH ×2 (07:41→19:08)
[2020-01-22] MEDS: atorvastatin 20mg tablet PO SCH (07:42)
[2020-01-22] MEDS: apixaban 5mg tablet PO SCH ×2 (07:43→19:10)
[2020-01-22] MEDS: carVEDilol 12.5mg tablet PO SCH ×2 (07:43→19:08)
[2020-01-22] MEDS: spironolactone 25 MG tablet PO SCH (07:43)
[2020-01-22] MEDS: furosemide 40mg/4ml inj IV SCH ×2 (07:44→19:07)
[2020-01-22] MEDS: vitamin D (cholecalciferol) 1,000 unit tablet PO SCH (07:44)
--- NOTE | 2020-01-22 08:46 | NUR ---
Orders put in to DC cardizem gtt, and to start on Cardizem 30mg PO q6hr, and ativan 0.5mg PO q12hr put in per Dr. Chavez.
[2020-01-22] MEDS: LORazepam 0.5 MG tablet PO PRN (12:09)
[2020-01-22] MEDS: diltiazem 30mg tablet PO SCH ×2 (14:43→19:07)
--- NOTE | 2020-01-22 15:49 | NUR ---
Paged Dr. Chavez regarding patient's HR sustaining in the 140s PAGER ID: [phone] MESSAGE: [phone]. Villa Wilkinson. Patient's HR sustaining in 140s in atrial flutter. Thank you. Stephy DONAHUE x [phone] Addendum: 01/22/20 at 1816 by Stephy Sanchez RN No call back and no new orders received.
--- NOTE | 2020-01-22 18:00 | NUR ---
Patient in room PCU 3012. I have received report from Stephy DONAHUE and had the opportunity to ask questions and assume patient care.
--- NOTE | 2020-01-22 18:27 | NUR ---
Problems reprioritized. Patient report given, questions answered & plan of care reviewed with GODFREY Ragsdale. Patient stable at transfer of care.
[2020-01-23] MEDS: diltiazem 30mg tablet PO SCH ×4 (01:12→20:14)
[2020-01-23 01:31] VITALS: BP 120/102
[2020-01-23] MEDS: LORazepam 0.5 MG tablet PO PRN ×2 (02:36→15:45)
[2020-01-23 06:00] VITALS: BP 141/87
--- NOTE | 2020-01-23 06:17 | NUR ---
Problems reprioritized. Patient report given, questions answered & plan of care reviewed with Ju DONAHUE.
--- NOTE | 2020-01-23 06:25 | NUR ---
Patient in room PCU 3012. I have received report from GODFREY Ragsdale and had the opportunity to ask questions and assume patient care.
[2020-01-23 06:31] LABS: BASOPHILS # (AUTO) 0.1 X10'3 (0-0.2); EOSINOPHILS # (AUTO) 0.2 X10'3 (0-0.9); HEMATOCRIT 56.3 % (42.0-52.0); LYMPHOCYTES # (AUTO) 1.6 X10'3 (1.1-4.8); LYMPHOCYTES % (AUTO) 21.4 % (21-51); MEAN CORPUSCULAR HEMOGLOBIN 35.1 PG (27.0-31.0); MEAN CORPUSCULAR HGB CONC 33.2 g/dL (33.0-36.5); MEAN CORPUSCULAR VOLUME 105.8 FL (78-98); MEAN PLATELET VOLUME 8.2 FL (7.4-10.4); NEUTROPHILS # (AUTO) 4.6 X10'3 (1.8-7.7); NEUTROPHILS % (AUTO) 61.6 % (42-75); PLATELET COUNT 203 X10'3 (140-440); RED BLOOD COUNT 5.32 X10'6 (4.70-6.10); RED CELL DISTRIBUTION WIDTH 17.1 % (11.5-14.5); WHITE BLOOD COUNT 7.5 X10'3 (4.5-11.0)
[2020-01-23 06:36] LABS: ALBUMIN 3.5 G/DL (3.4-5.0); ANION GAP 9 (8-16); BLOOD UREA NITROGEN 58 MG/DL (7-18); BUN/CREATININE RATIO 23.2 (5.4-32.0); CALCIUM 9.8 MG/DL (8.5-10.1); CHLORIDE 102 MMOL/L (99-107); GLUCOSE 96 MG/DL (70-104); SODIUM 142 MMOL/L (135-145); TOTAL CARBON DIOXIDE 30.8 MMOL/L (24-32); eGFR 26 ML/MIN
[2020-01-23 06:38] LABS: HEMOGLOBIN 18.7 g/dl (14.0-17.9)
[2020-01-23 06:39] LABS: POTASSIUM 4.5 MMOL/L (3.5-5.1)
[2020-01-23] MEDS: spironolactone 25 MG tablet PO SCH (07:28)
[2020-01-23] MEDS: furosemide 40mg/4ml inj IV SCH ×2 (07:29→20:13)
[2020-01-23] MEDS: vitamin D (cholecalciferol) 1,000 unit tablet PO SCH (07:29)
[2020-01-23] MEDS: atorvastatin 20mg tablet PO SCH (07:29)
[2020-01-23] MEDS: apixaban 5mg tablet PO SCH ×2 (07:29→20:14)
[2020-01-23] MEDS: carVEDilol 12.5mg tablet PO SCH ×2 (07:29→20:14)
[2020-01-23] MEDS: HYDROcodone/acetaminophen 10/325mg tab PO PRN ×3 (07:44→20:15)
[2020-01-23] MEDS: sacubitril/valsartan 24mg-26mg tablet PO SCH ×2 (09:10→20:14)
[2020-01-23] MEDS ORDERED: digoxin 250mcg/ml 2ml ampule IV ONE (10:20)
--- NOTE | 2020-01-23 10:25 | NUR ---
Dr. Chavez ordered cardizem to be changed to 60mg TID and to give 0.5 of digoxin IV. Orders placed into the computer, awaiting verification.
--- NOTE | 2020-01-23 10:50 | NUR ---
Before administration of Digoxin, patient's blood pressure and heart rate measured: 109/70, HR of 68. Dr. Chavez notified to which he said to "hold the digoxin unless the patient has sustained tachycardia." Will continue to monitor.
[2020-01-23 11:00] VITALS: BP 124/55
[2020-01-23 15:00] VITALS: BP 103/79
--- NOTE | 2020-01-23 15:04 | NUR ---
notified. awaiting orders PAGER ID: [phone] MESSAGE: Re: Villa Wilkinson. [phone]. BP read 90's systolically multiple times; including manual. Highest BP was 103/79. HR 86. Do you want me to hold Cardizem? Ju N #[id number]
[2020-01-23 18:00] VITALS: BP 126/81
--- NOTE | 2020-01-23 18:00 | NUR ---
Patient in room PCU 3012. I have received report from Ju DONAHUE and had the opportunity to ask questions and assume patient care.
--- NOTE | 2020-01-23 18:15 | NUR ---
Problems reprioritized. Patient report given, questions answered & plan of care reviewed with GODFREY Ragsdale.
[2020-01-23 22:00] VITALS: BP 134/86
[2020-01-24] MEDS: HYDROcodone/acetaminophen 10/325mg tab PO PRN ×3 (01:07→11:36)
[2020-01-24] MEDS: diltiazem 30mg tablet PO SCH ×2 (01:07→07:28)
--- NOTE | 2020-01-24 03:22 | NUR ---
Low HR in 30s Patient had a few episodes of a low heart rate of 30, first in the bathroom and second in deep sleep, and did not sustain. Patient was asymptomatic. Will continue to monitor.
[2020-01-24 05:39] LABS: ALBUMIN 3.3 G/DL (3.4-5.0); ANION GAP 9 (8-16); BLOOD UREA NITROGEN 61 MG/DL (7-18); BUN/CREATININE RATIO 22.2 (5.4-32.0); CALCIUM 9.1 MG/DL (8.5-10.1); CHLORIDE 103 MMOL/L (99-107); CREATININE 2.75 MG/DL (0.60-1.10); GLUCOSE 98 MG/DL (70-104); SODIUM 141 MMOL/L (135-145); TOTAL CARBON DIOXIDE 29.3 MMOL/L (24-32); eGFR 23 ML/MIN
[2020-01-24 05:41] LABS: POTASSIUM 4.5 MMOL/L (3.5-5.1)
[2020-01-24 05:58] LABS: BASOPHILS # (AUTO) 0.1 X10'3 (0-0.2); BASOPHILS % (AUTO) 1.2 % (0-1); EOSINOPHILS # (AUTO) 0.2 X10'3 (0-0.9); EOSINOPHILS % (AUTO) 2.9 % (0-6); HEMATOCRIT 55.7 % (42.0-52.0); LYMPHOCYTES # (AUTO) 1.7 X10'3 (1.1-4.8); LYMPHOCYTES % (AUTO) 25.2 % (21-51); MEAN CORPUSCULAR HEMOGLOBIN 35.1 PG (27.0-31.0); MEAN CORPUSCULAR VOLUME 106.4 FL (78-98); MEAN PLATELET VOLUME 8.5 FL (7.4-10.4); MONOCYTES % (AUTO) 14.4 % (2-12); NEUTROPHILS # (AUTO) 3.8 X10'3 (1.8-7.7); NEUTROPHILS % (AUTO) 56.3 % (42-75); PLATELET COUNT 221 X10'3 (140-440); RED BLOOD COUNT 5.24 X10'6 (4.70-6.10); RED CELL DISTRIBUTION WIDTH 17.1 % (11.5-14.5); WHITE BLOOD COUNT 6.7 X10'3 (4.5-11.0)
[2020-01-24 06:00] VITALS: BP 127/103
--- NOTE | 2020-01-24 06:14 | NUR ---
Problems reprioritized. Patient report given, questions answered & plan of care reviewed with Ju DONAHUE.
--- NOTE | 2020-01-24 06:20 | NUR ---
Patient in room PCU 3012. I have received report from GODFREY Ragsdale and had the opportunity to ask questions and assume patient care.
[2020-01-24 06:34] LABS: HEMOGLOBIN 18.4 g/dl (14.0-17.9)
[2020-01-24] MEDS: spironolactone 25 MG tablet PO SCH (07:28)
[2020-01-24] MEDS: vitamin D (cholecalciferol) 1,000 unit tablet PO SCH (07:28)
[2020-01-24] MEDS: sacubitril/valsartan 24mg-26mg tablet PO SCH (07:29)
[2020-01-24] MEDS: carVEDilol 12.5mg tablet PO SCH (07:29)
[2020-01-24] MEDS: apixaban 5mg tablet PO SCH (07:29)
[2020-01-24] MEDS: atorvastatin 20mg tablet PO SCH (07:29)
[2020-01-24] MEDS: furosemide 40mg/4ml inj IV SCH (07:29)
[2020-01-24] MEDS: LORazepam 0.5 MG tablet PO PRN (10:43)
[2020-01-24] MEDS ORDERED: FURO40TA4 PO (10:53)
[2020-01-24] MEDS ORDERED: DILT-36 PO (10:53)
--- NOTE | 2020-01-24 14:35 | NUR ---
Patient stable for discharge per MD orders. All discharge instructions reviewed with patient and all questions answered. New prescriptions were e-scripted into [facility] on [address] . Patient medications retrieved from pharmacy. PIV discontinued with cannula intact. outbound sales specialist discontinued. Belonging Collected and sent with patient. Patient wheel to the lobby assisted by GODFREY Mack. Cut patient armbands at the time of discharge. Patient's daughter was awaiting patient in a private vehicle, that was seen driven off the premise.
== END 2020-01-24 14:35 | disposition home or self-care (01) | DRG 291 ==
LOC: ER 11:32 → ED HOLD 13:57 → PCU 3S 18:20
PROVIDERS: ADMIT Internal Medicine; ATTEND Internal Medicine
DX: I13.0 Hypertensive heart and chronic kidney disease with heart failure and stage 1 through stage 4 chronic kidney disease, or unspecified chronic kidney disease (principal); I50.23 Acute on chronic systolic (congestive) heart failure; Z68.41 Body mass index [BMI] 40.0-44.9, adult; N17.9 Acute kidney failure, unspecified; E78.00 Pure hypercholesterolemia, unspecified; N18.3 Chronic kidney disease, stage 3 (moderate); I48.0 Paroxysmal atrial fibrillation; I25.10 Atherosclerotic heart disease of native coronary artery without angina pectoris; E78.5 Hyperlipidemia, unspecified; E66.01 Morbid (severe) obesity due to excess calories; G47.30 Sleep apnea, unspecified; G89.29 Other chronic pain; I25.2 Old myocardial infarction; Z95.5 Presence of coronary angioplasty implant and graft; Z79.899 Other long term (current) drug therapy; Z87.891 Personal history of nicotine dependence
CPT/HCPCS: 36415; 71045; 80048; 80053; 80162; 81001; 83605; 83880; 84145; 84484; 85025; 85379; 85610; 85651; 85730; 87040; 87081; 87088; 93005; 93306; 93922; 93925; 93971; 96374; 96376; 99285; G0378; J1160; J1940; J3490

== ENCOUNTER 2023-05-13 08:34 | Emergency (ER) | payer OTHER, MEDICARE ==
[~2023-05-13] VITALS: Ht 162.6 cm; Wt 108.6 kg
[~2023-05-13 08:34] MED LIST changes: +ATOR20TA66 PO; -CARV-50 PO; +CARV25TA PO; -CLOP75TA15 PO; +INSU100V12 SQ; -POTA20TA19 PO; -SACU1TAB PO; +SACU1TAB7 PO; -SPIR25TA PO; -TRAM50TA2 PO
[2023-05-13 08:49] VITALS: TEMP 97.9
[2023-05-13] MEDS ORDERED: acetaminophen 325mg tablet PO ONE (10:10)
[2023-05-13 10:39] LABS: BASOPHILS # (AUTO) 0.1 X10'3 (0-0.2); BASOPHILS % (AUTO) 0.8 % (0-1); EOSINOPHILS # (AUTO) 0.1 X10'3 (0-0.9); EOSINOPHILS % (AUTO) 1.2 % (0-6); HEMATOCRIT 43.8 % (42.0-52.0); HEMOGLOBIN 14.9 g/dl (14.0-17.9); LYMPHOCYTES # (AUTO) 1.5 X10'3 (1.1-4.8); LYMPHOCYTES % (AUTO) 14.3 % (21-51); MEAN CORPUSCULAR HEMOGLOBIN 33.2 PG (27.0-31.0); MEAN CORPUSCULAR HGB CONC 34.1 g/dL (33.0-36.5); MEAN CORPUSCULAR VOLUME 97.5 FL (78-98); MEAN PLATELET VOLUME 7.3 FL (7.4-10.4); MONOCYTES # (AUTO) 1.4 X10'3 (0-0.9); MONOCYTES % (AUTO) 13.4 % (2-12); NEUTROPHILS # (AUTO) 7.4 X10'3 (1.8-7.7); NEUTROPHILS % (AUTO) 70.3 % (42-75); PLATELET COUNT 261 X10'3 (140-440); RED CELL DISTRIBUTION WIDTH 15.8 % (11.5-14.5); WHITE BLOOD COUNT 10.6 X10'3 (4.5-11.0)
[2023-05-13 10:55] VITALS: PULSE 61; RESP 13; O2SAT 96
--- NOTE | 2023-05-13 11:02 | NUR ---
PT REFUSES TYLENOL/REQ ULTRAM/[employer] WAITING FOR PENDING LABS
[2023-05-13 11:03] LABS: ALANINE AMINOTRANSFERASE 22 U/L (12-78); ALBUMIN 3.6 G/DL (3.4-5.0); ALBUMIN/GLOBULIN RATIO 0.9 (1.1-1.5); ALKALINE PHOSPHATASE 85 IU/L (46-116); ANION GAP 11 (8-16); ASPARTATE AMINO TRANSFERASE 14 U/L (10-37); BILIRUBIN,TOTAL 0.7 MG/DL (0.1-1.0); BLOOD UREA NITROGEN 53 MG/DL (7-18); BUN/CREATININE RATIO 25.5 (10.0-20.0); C-REACTIVE PROTEIN 4.39 MG/DL (0.0-0.5); CALCIUM 9.4 MG/DL (8.5-10.1); CHLORIDE 102 MMOL/L (99-107); CREATININE 2.08 MG/DL (0.60-1.10); GLUCOSE 144 MG/DL (70-104); POTASSIUM 3.9 MMOL/L (3.5-5.1); SODIUM 137 MMOL/L (135-145); TOTAL PROTEIN 7.5 G/DL (6.4-8.2); URIC ACID 7.6 MG/DL (3.5-7.2); eCRCL 28 ML/MIN; eGFR 32 ML/MIN
[2023-05-13] MEDS ORDERED: predniSONE 20 mg tablet PO ONE (11:10)
[2023-05-13] MEDS ORDERED: DICLOFENAC SODIUM 1% gel 1 APPLIC APPLIC TP ONE (11:10)
[2023-05-13] MEDS ORDERED: PRED20TA PO (11:11)
[2023-05-13] MEDS ORDERED: DICL20GE TOP (11:11)
[2023-05-13 11:21] VITALS: BP 121/73
== END 2023-05-13 11:34 | disposition home or self-care (01) ==
LOC: ER 08:35
DX: M10.9 Gout, unspecified (principal); I11.0 Hypertensive heart disease with heart failure; E78.00 Pure hypercholesterolemia, unspecified; Z91.018 Allergy to other foods; Z79.899 Other long term (current) drug therapy
CPT/HCPCS: 36415; 73110; 80053; 82948; 84550; 85025; 86140; 99284; J7512; A4565; A6449

== ENCOUNTER 2024-01-17 03:04 | Inpatient (IN) | payer OTHER, MEDICARE ==
[2024-01-17] VITALS (7 sets, daily range): BP systolic 131–156; BP diastolic 63–102; PULSE 65–119; RESP 17–36; TEMP 97.4–98.3; O2SAT 87–98
[~2024-01-17] VITALS: Ht 162.6 cm; Wt 122.7 kg
[~2024-01-17 03:04] MED LIST changes: +DICL20GE TOP
[2024-01-17] MEDS: nitroGLYCERIN-Tridil 50MG/D5W 250 ML IV ONE (03:29)
[2024-01-17 03:31] LABS: BASOPHILS # (AUTO) 0.1 X10'3 (0-0.2); BASOPHILS % (AUTO) 0.9 % (0-1); EOSINOPHILS # (AUTO) 0.3 X10'3 (0-0.9); EOSINOPHILS % (AUTO) 2.3 % (0-6); HEMATOCRIT 47.6 % (42.0-52.0); HEMOGLOBIN 15.7 g/dl (14.0-17.9); LYMPHOCYTES # (AUTO) 3.9 X10'3 (1.1-4.8); LYMPHOCYTES % (AUTO) 27.4 % (21-51); MEAN CORPUSCULAR HEMOGLOBIN 32.2 PG (27.0-31.0); MEAN CORPUSCULAR VOLUME 97.4 FL (78-98); MEAN PLATELET VOLUME 7.7 FL (7.4-10.4); MONOCYTES % (AUTO) 6.8 % (2-12); NEUTROPHILS # (AUTO) 8.9 X10'3 (1.8-7.7); NEUTROPHILS % (AUTO) 62.6 % (42-75); PLATELET COUNT 322 X10'3 (140-440); RED BLOOD COUNT 4.89 X10'6 (4.70-6.10); RED CELL DISTRIBUTION WIDTH 17.4 % (11.5-14.5); WHITE BLOOD COUNT 14.2 X10'3 (4.5-11.0)
[2024-01-17 03:36] LABS: BILIRUBIN,URINE NEGATIVE (Neg); CLARITY,URINE CLEAR (Clear); COLOR,URINE YELLOW (Yellow); GLUCOSE, URINE >=1000 mg/dl (Neg); KETONES,URINE NEGATIVE (Neg); LEUKOCYTE ESTERASE ,URINE NEGATIVE (Neg); NITRITES, URINE NEGATIVE (Neg); OCCULT BLOOD,URINE TRACE-INTACT (Neg); PH,URINE 5.5 (4.8-8.0); PROTEIN,URINE 100 mg/dl (Neg); UROBILINOGEN,URINE 0.2 E.U/dL (0.2-1.0)
[2024-01-17] MEDS: furosemide 10 MG/1 ML 10ml inj IV ONE (03:45)
[2024-01-17 03:52] LABS: ALBUMIN 3.6 G/DL (3.4-5.0); ANION GAP 12 (8-16); BLOOD UREA NITROGEN 62 MG/DL (7-18); BUN/CREATININE RATIO 21.5 (10.0-20.0); CALCIUM 9.4 MG/DL (8.5-10.1); CHLORIDE 106 MMOL/L (99-107); CREATININE 2.89 MG/DL (0.60-1.10); GLUCOSE 194 MG/DL (70-104); POTASSIUM 4.1 MMOL/L (3.5-5.1); PRO BRAIN NATRIURETIC PEPTIDE 12882 PG/ML (0-125); SODIUM 141 MMOL/L (135-145); TOTAL CARBON DIOXIDE 22.7 MMOL/L (24-32); eCRCL 20 ML/MIN; eGFR 22 ML/MIN
[2024-01-17] MEDS: aspirin 325mg tablet PO ONE (03:54)
[2024-01-17] MEDS: LORazepam 2 mg/ml vial IV ONE (03:54)
[2024-01-17 03:55] LABS: UA COLLECTION TYPE CLN CATCH MIDSTREAM
[2024-01-17] MEDS ORDERED: fentaNYL/PF 50MCG/1 ML 2ML syringe IV PRN (03:55)
[2024-01-17] MEDS ORDERED: MIDAZOLAM IN NACL,ISO-OSMOT/PF 100 ML IV PRN (03:55)
[2024-01-17 03:58] LABS: BACTERIA,URINE NONE SEEN /HPF (Neg); FINE GRANULAR CAST 0-3 /LPF (NEGATIVE); MUCUS STRANDS FEW /LPF (Neg); RBC,URINE 0-2 /HPF (0-2); SQUAMOUS EPITHELIAL CELL,UR FEW /LPF (FEW); WBC,URINE 0-4 /HPF (0-4)
[2024-01-17 04:14] LABS: APTT 27 SECONDS (22-32); PROTHROMBIN TIME 11.1 SECONDS (9.0-12.0)
[2024-01-17] MEDS: etomidate 2mg/ml inj. IV ONE (04:34)
[2024-01-17] MEDS: heparin 10,000 units/1 ML INJ IV ONE (04:55)
[2024-01-17] MEDS: MESSAGE TO NURSING IV ONE ×3 (04:56→17:59)
[2024-01-17] MEDS: heparin 25,000 UNIT/250ml bag 250 ML IV PRN (04:56)
[2024-01-17 04:57] LABS: ABG HCO3 17.8 mmol/L (22.0-26.0); ABG OXYGEN SATURATION 99.5 % (94-97); ABG PCO2 (T) 34.4 mmHg (35.0-48.0); ABG PH (T) 7.332 (7.340-7.440); ABG PO2 (T) 264.4 mmHg (75.0-100.0); ALLEN'S TEST Modified; FCOHb 0.2 % (0.0-3.9); FHHb 0.5 % (0.0-5.0); FMetHb 0.4 % (0.0-1.5); FO2Hb 98.9 % (94-97); MODE BiPAP; RESPIRATORY RATE 10 b/min; TOTAL HEMOGLOBIN 15.9 G/dl (14.0-17.9)
[2024-01-17] MEDS ORDERED: potassium Cl 20 mEq SR tablet PO PRN ×2 (05:45)
[2024-01-17] MEDS ORDERED: magnesium Cl slow-release 64mg tablet PO PRN (05:45)
[2024-01-17] MEDS ORDERED: magnesium sulf-water 4G/100mL 100 ML IV PRN (05:45)
[2024-01-17] MEDS ORDERED: potassium Cl 40MEQ/1/2NS 520ml 520 ML IV PRN (05:45)
[2024-01-17] MEDS ORDERED: acetaminophen 325mg tablet PO PRN (05:45)
[2024-01-17] MEDS ORDERED: magnesium sulf-water 2g/50mL 50 ML IV PRN (05:45)
[2024-01-17] MEDS ORDERED: magnesium hydroxide 30ml (MOM) UD suspension PO PRN (05:45)
[2024-01-17] MEDS ORDERED: mag hydrox/Alum hydrox/simeth 30ml oral suspension PO PRN (05:45)
[2024-01-17] MEDS ORDERED: morphine 2 MG/ML inj. syringe IV PRN (05:45)
[2024-01-17] MEDS ORDERED: DEXTROSE 15 GM of carb/4 tabs (each vial/BOTTLE has 4 tablets) PO PRN ×2 (06:35)
[2024-01-17] MEDS ORDERED: dextrose 50%-water 50ml dispensing syringe IV PRN ×2 (06:35)
[2024-01-17] MEDS ORDERED: glucagon, human recombinant 1mg kit SUBCUT PRN (06:35)
[2024-01-17 07:45] LABS: CHOL/HDL RATIO 3.5 (0.00-4.99); CHOLESTEROL 133 MG/DL (0-200); HDL CHOLESTEROL 38 MG/DL (35-60); LDL CHOLESTEROL 86 MG/DL (50-100); MAGNESIUM 1.9 MG/DL (1.5-2.4); POTASSIUM 4.1 MMOL/L (3.5-5.1); THYROID STIMULATING HORMONE 3.43 ulU/ml (0.34-4.50); TRIGLYCERIDES 57 MG/DL (20-135)
[2024-01-17] MEDS: K and/or MAG REPLACEMENT MC SCH (07:46)
[2024-01-17] MEDS: furosemide 40mg/4ml inj IV SCH (07:54)
[2024-01-17] MEDS: pantoprazole 40mg Tablet.DR PO SCH (07:54)
[2024-01-17] MEDS: docusate sod 100mg capsule PO SCH (07:55)
[2024-01-17 07:59] LABS: HEMOGLOBIN A1C 7.7 % (4.5-6.2)
[2024-01-17] MEDS: ondansetron/PF 4mg/2ml inj IV PRN (08:42)
[2024-01-17] MEDS: morphine 2 MG/ML inj. syringe IV PRN (08:42)
[2024-01-17] MEDS: INSULIN LISPRO 100 UNIT/ML INSULN.PEN MULTI-DOSE SQ SCH (09:00)
[2024-01-17] MEDS ORDERED: ATOR40TA PO (10:26)
[2024-01-17] MEDS ORDERED: CARV25TA PO (12:42)
[2024-01-17] MEDS: heparin 10,000 units/1 ML INJ IV PRN (17:48)
[2024-01-17] MEDS ORDERED: MESSAGE TO NURSING IV ONE (17:55)
[2024-01-17] MEDS: apixaban 5mg tablet PO SCH (20:02)
[2024-01-17] MEDS: carVEDilol 12.5mg tablet PO SCH (20:02)
[2024-01-17] MEDS: sacubitril/valsartan 49mg-51mg tablet PO SCH (20:03)
[2024-01-17] MEDS: insulin glargine (Lantus) pen - multi-dose SQ SCH (21:00)
[2024-01-18 02:00] VITALS: BP 142/93; PULSE 68; RESP 22; TEMP 97.3; O2SAT 97
[2024-01-18 05:06] LABS: BASOPHILS # (AUTO) 0.1 X10'3 (0-0.2); BASOPHILS % (AUTO) 1.4 % (0-1); EOSINOPHILS # (AUTO) 0.1 X10'3 (0-0.9); EOSINOPHILS % (AUTO) 1.7 % (0-6); HEMATOCRIT 41.8 % (42.0-52.0); HEMOGLOBIN 14.1 g/dl (14.0-17.9); LYMPHOCYTES # (AUTO) 1.3 X10'3 (1.1-4.8); LYMPHOCYTES % (AUTO) 15.9 % (21-51); MEAN CORPUSCULAR HEMOGLOBIN 32.9 PG (27.0-31.0); MEAN CORPUSCULAR HGB CONC 33.8 g/dL (33.0-36.5); MEAN CORPUSCULAR VOLUME 97.4 FL (78-98); MEAN PLATELET VOLUME 7.6 FL (7.4-10.4); MONOCYTES # (AUTO) 0.7 X10'3 (0-0.9); MONOCYTES % (AUTO) 8.6 % (2-12); NEUTROPHILS # (AUTO) 5.8 X10'3 (1.8-7.7); NEUTROPHILS % (AUTO) 72.4 % (42-75); PLATELET COUNT 266 X10'3 (140-440); RED BLOOD COUNT 4.29 X10'6 (4.70-6.10); RED CELL DISTRIBUTION WIDTH 17.1 % (11.5-14.5)
[2024-01-18 05:22] LABS: ALANINE AMINOTRANSFERASE 16 U/L (12-78); ALBUMIN 3.1 G/DL (3.4-5.0); ALBUMIN/GLOBULIN RATIO 0.9 (1.1-1.5); ALKALINE PHOSPHATASE 73 IU/L (46-116); ANION GAP 10 (8-16); ASPARTATE AMINO TRANSFERASE 13 U/L (10-37); BILIRUBIN,TOTAL 1.3 MG/DL (0.1-1.0); BLOOD UREA NITROGEN 72 MG/DL (7-18); BUN/CREATININE RATIO 20.8 (10.0-20.0); CHLORIDE 109 MMOL/L (99-107); CREATININE 3.46 MG/DL (0.60-1.10); GLUCOSE 130 MG/DL (70-104); MAGNESIUM 2.4 MG/DL (1.5-2.4); POTASSIUM 4.3 MMOL/L (3.5-5.1); SODIUM 145 MMOL/L (135-145); TOTAL CARBON DIOXIDE 26.2 MMOL/L (24-32); TOTAL PROTEIN 6.6 G/DL (6.4-8.2); eCRCL 17 ML/MIN; eGFR 18 ML/MIN
[2024-01-18 06:00] VITALS: BP 134/78; PULSE 71; RESP 20; TEMP 97.4; O2SAT 95
[2024-01-18] MEDS: atorvastatin 20mg tablet PO SCH (07:25)
[2024-01-18] MEDS: furosemide 40mg tablet PO SCH (07:26)
[2024-01-18 08:00] VITALS: RESP 20; O2SAT 95
[2024-01-18 11:00] VITALS: BP 115/77; PULSE 77; RESP 13; TEMP 98.1; O2SAT 92
[2024-01-18 15:00] VITALS: BP 137/87; PULSE 80; RESP 17; TEMP 97.9; O2SAT 93
[2024-01-18] MEDS ORDERED: FURO20TA4 PO (16:55)
[2024-01-18] MEDS ORDERED: AMI200T PO (16:55)
[2024-01-18 17:22] LABS: FREE T4 (FREE THYROXINE) 0.91 NG/DL (0.73-1.40); THYROID STIMULATING HORMONE 1.29 ulU/ml (0.34-4.50)
[2024-01-18] MEDS ORDERED: amiodarone 200mg tablet PO SCH (20:00)
[2024-01-19] MEDS ORDERED: furosemide 40mg/4ml inj IV SCH (08:00)
== END 2024-01-18 18:08 | disposition home or self-care (01) | DRG 280 ==
LOC: ER 03:04 → ED HOLD 05:46 → PCU 3S 11:02
PROVIDERS: ADMIT Internal Medicine; ATTEND Internal Medicine
PROC: 5A09357 Assistance with Respiratory Ventilation, Less than 24 Consecutive Hours, Continuous Positive Airway Pressure (ICD-10-PCS; principal; 2024-01-17)
DX: I21.4 Non-ST elevation (NSTEMI) myocardial infarction (principal); I50.43 Acute on chronic combined systolic (congestive) and diastolic (congestive) heart failure; J96.22 Acute and chronic respiratory failure with hypercapnia; N17.9 Acute kidney failure, unspecified; N18.4 Chronic kidney disease, stage 4 (severe); I13.0 Hypertensive heart and chronic kidney disease with heart failure and stage 1 through stage 4 chronic kidney disease, or unspecified chronic kidney disease; E87.3 Alkalosis; Z68.41 Body mass index [BMI] 40.0-44.9, adult; I25.10 Atherosclerotic heart disease of native coronary artery without angina pectoris; I27.20 Pulmonary hypertension, unspecified; I48.0 Paroxysmal atrial fibrillation; J44.9 Chronic obstructive pulmonary disease, unspecified; G47.33 Obstructive sleep apnea (adult) (pediatric); E78.00 Pure hypercholesterolemia, unspecified; E11.22 Type 2 diabetes mellitus with diabetic chronic kidney disease; D72.828 Other elevated white blood cell count; E66.9 Obesity, unspecified; I25.2 Old myocardial infarction; Z79.01 Long term (current) use of anticoagulants; Z79.4 Long term (current) use of insulin; Z79.899 Other long term (current) drug therapy; Z87.891 Personal history of nicotine dependence; Z91.199 Patient's noncompliance with other medical treatment and regimen due to unspecified reason; Z95.1 Presence of aortocoronary bypass graft; Z95.5 Presence of coronary angioplasty implant and graft; Z95.810 Presence of automatic (implantable) cardiac defibrillator; Z88.8 Allergy status to other drugs, medicaments and biological substances
CPT/HCPCS: 36415; 36600; 71045; 80048; 80053; 80061; 81001; 82803; 82948; 83036; 83605; 83735; 83880; 84132; 84145; 84439; 84443; 84484; 85018; 85025; 85610; 85730; 87040; 93005; 93306; 94660; 94760; 96365; 96375; 96376; 99291; A6258; G0378; J1644; J1815; J1940; J2270; J2405; J3490; J7030